=== PATIENT | female | born 1990 | race Caucasian/White ===

== ENCOUNTER 2016-11-12 19:22 | Emergency (ER) | payer OTHER ==
[~2016-11-12] VITALS: Ht 154.9 cm; Wt 63.6 kg
[~2016-11-12 19:22] MED LIST: ASCO100089 PO; DERSP TOP; IBUP-1152 PO; LANOHPA TOP; PNV1TABL57 PO; TUCPAD TOP
[2016-11-12 19:26] VITALS: BP 151/80; PULSE 98; RESP 20; O2SAT 98
--- NOTE | 2016-11-12 20:19 | ED.REPORT ---
HPI-General Illness Date of Service Nov 12, 2016 ED Provider: Jose Alejandro Rodriguez DO Patient is a 26 year old female with a history of bipolar disorder, PTSD and IV drug use who presents to the ED complaining of abdominal pain onset yesterday. Associated symptoms include pain that radiates into her back and bilateral flanks, nausea and vomiting. Patient reports that she is and last used heroin this morning. She states that she relapsed 2 months ago. Nursing Notes Stated Complaint: STOMACH/KIDNEY PAIN Chief Complaint: Female Abdominal Pain Nursing Notes Reviewed: Yes Allergies: Coded Allergies: No Known Allergies (Unverified Allergy, 11/07/12) Scheduled Ascorbic Acid-Expunged Drug, Do Not Renew! (Vitamin C-Expunged Drug, Do Not Renew!) 1,000 Mg Tab.chew 1,000 MG PO 1-2XD Buprenorphine SL (Buprenorphine SL) 8 Mg Tab.subl 8 MG SL BID PNV CMB#95/FERROUS FUMARATE/FA-Expunged Drug, (-Expunged Drug, Do Not Renew!) 1 Each Tablet 1 EACH PO 1-2XD Scheduled PRN ([Lanohpa]) 1 APPLIC TOP PRN PRN PRN ([Tucpad]) 1 EA TOP PRN PRN PRN Benzocaine (Dermoplast Marlow) 1 Marlow/Gm Aero 1 SPRAY TOP PRN PRN PRN IBUPROFEN-Expunged Drug, Do Not Renew! (IBUPROFEN-Expunged Drug, Do Not Renew!) 800 Mg Tablet 800 MG PO Q6 PRN PRN General Time Seen by MD: 20:19 Chief Complaint Abdominal pain Hx Obtained From: Patient Arrived By: Walk-in Sudden in Onset?: Yes Onset Occurred: 1 day ago Symptom Duration: Since onset Location: : Abdomen Quality: Painful, Pressure Radiation: : Back Severity: Current: Moderate Associated with: Reports: Nausea, Vomiting Recent Healthcare: No recent hospitalization, Recent doctor visit Similar Sx Previous: No Past Medical History Past Medical History Notes: patient is Rh positive and 10 weeks (11/12/16) Past Medical History anxiety depression bipolar disorder PTSD Smoking History Unknown if Ever Smoker Social History Drug Use: IV drugs Other Social History: Local resident Ambulatory Status Independent Review of Systems Full Review of Systems Constitutional: Denies: Chills, Fever Respiratory: Denies: Non-productive cough, Shortness of breath GI: Reports: Abdominal pain, Nausea, Vomiting, Denies: Constipation, Diarrhea Female: Reports: Flank pain, , Denies: Dysuria Musculoskeletal: Reports: Back pain Neurologic: Denies: Headache Complete sys rev & neg: except as marked. Physical Exam Vital Signs Vital Signs Date Time Temp Pulse Resp B/P Pulse Ox O2 Delivery O2 Flow Rate FiO2 11/12/16 19:26 37 98 20 151/80 98 Room Air Initial VS: Reviewed General/Constitutional: Awake, Alert Distress / Hydration: Positive: Distress mild Head / Eyes: Atraumatic, Normocephalic, PERRL, EOMI Respiratory / Chest: Atraumatic, Breath sounds NL, Breath sounds = bilat, No respiratory distress Cardiovascular: Heart rate NL, Regular rhythm, Heart sounds NL Abdomen: Atraumatic, Soft, BS normoactive Tenderness/Guarding/Rebound: Positive: Tender diffuse Skin: Atraumatic, Color NL, No rash, Warm, Dry Neurologic: Oriented X3, Speech NL, No motor deficits, No sensory deficits Psychiatric: Affect NL, Mood NL Interpretation & Diagnostics Interpretation & Diagnostics: Ultrasound per tech was normal and showed a 10 week Lab Results Interpretation Result Diagram: 11/12/16212411/12/162124 Test 11/12/16 20:20 11/12/16 21:25 Urine Color Straw (YELLOW) Urine Appearance Clear (CLEAR,HAZY) Urine pH 6.5 (5.0-8.0) Urine Specific [place] 1.015 (1.003-1.035) Urine Protein Negativemg/dL (NEG,TRACE) Urine Glucose (UA) Negativemg/dL (NEGATIVE) Urine Ketones Negativemg/dL (NEGATIVE) Urine Occult Blood Negative (NEGATIVE) Urine Nitrite Negative (NEGATIVE) Urine Bilirubin Negative (NEGATIVE) Urine Urobilinogen Normalmg/dL (NORMAL) Urine Leukocyte Esterase Moderate (NEGATIVE) Urine RBC 0-2/hpf (0-2) Urine WBC 6-10/hpf (0-5) Urine Epithelial Cells Few/hpf (NONE-MOD) Urine Crystals None seen (NONE SEEN) Urine Bacteria Few/hpf (NONE-FEW) Urine Hyaline Casts None/lpf (NONE) Urine Granular Casts None seen (NONE SEEN) Urine Waxy Casts None seen (NONE SEEN) Urine Red Blood Cell Casts None seen (NONE SEEN) Urine White Blood Cell Casts None seen (NONE SEEN) Urine Mucus None seen (None Seen) Urine Trichomonas None seen (NONE SEEN) Urine Yeast None (NONE SEEN) Urinalysis Comment None Urine Culture Reflexed Indicated White Blood Count 15.9th/mm3 (3.8-10.1) Red Blood Count 3.96mil/mm3 (3.90-5.20) Hemoglobin 12.4g/dL (12.0-15.6) Hematocrit 36.0% (35.0-46.0) Mean Corpuscular Volume 90.9fL (81-100) Mean Corpuscular Hemoglobin 31.3pg (27.0-35.0) Mean Corpuscular Hemoglobin Concent 34.4% (32.0-37.0) Red Cell Distribution Width 12.3% (12.3-15.4) Platelet Count 283bil/L (150-400) Neutrophils (%) (Auto) 82.8% (40-74) Lymphocytes (%) (Auto) 9.1% (14-46) Monocytes (%) (Auto) 6.6% (4-12) Eosinophils (%) (Auto) 0.9% (0-5) Basophils (%) (Auto) 0.1% (0-3) Sodium Level 137mEq/L (134-144) Potassium Level 3.9mEq/L (3.5-5.2) Chloride Level 95mEq/L (97-108) Carbon Dioxide Level 21mmol/L (18-29) Blood Urea Nitrogen 7mg/dL (6-20) Creatinine 0.52mg/dL (0.57-1.00) Estimat Glomerular Filtration Rate 203mL/min (>59) Glucose Level 96mg/dL (60-99) Calcium Level 10.5mg/dL (8.5-10.1) Magnesium Level 1.8mg/dL (1.6-2.6) Total Bilirubin 0.2mg/dL (0.0-1.2) Aspartate Amino Transf (AST/SGOT) 24U/L (0-50) Alanine Aminotransferase (ALT/SGPT) 18U/L (0-32) Alkaline Phosphatase 73U/L (25-150) Total Protein 8.4g/dL (6.4-8.4) Albumin 4.5g/dL (3.4-5.0) Lipase 17U/L (13-60) HCG Beta Subunit [id number]/mL Re-Eval/Medical Decision Med Decision/Clinical Course Patient is Rh positive and 10 weeks . Ultrasound was normal. Urinalysis showed few leukocytes and bacteria, will treat with Keflex. Her abdomen is soft with no evidence whatsoever of acute abdomen. Ectopic pregnancies been ruled out. No signs or symptoms consistent with appendicitis. I can deeply palpate all quadrants. No rebound guarding or rigidity. No tenderness. Urine has bacteria we will culture it. Plan to treat with Keflex. Dr. Neal was consulted for [facility] [facility]/Suboxone therapy. Please see his note. At discharge Wendy was pain free and ready to go. Dr. Nael: ER Suboxone consultation: I spent approximately 20 minutes with this patient discussing her options for management of her opioid use disorder and . She is familiar with Suboxone and understands its and bandages for this treatment. She will be started on buprenorphine 16 mg daily and she was given a primary access number for [facility] to follow up with me. Time of Eval: 23:09 Re-Evaluation/Progress Note: Discussed results and plan for discharge. Patient understands and agrees to plan. All questions were addressed. Counseled Regarding: Diagnosis, Lab results, Need for follow-up, When/why to return to ED Discharge & Departure Primary Impression: UTI (urinary tract infection) Urinary tract infection type: site unspecified Hematuria presence: without hematuria Qualified Code: N39.0 - Urinary tract infection, site not specified Additional Impressions: Abdominal pain Abdominal location: lower abdomen, unspecified Qualified Code: R10.30 - Lower abdominal pain, unspecified Opioid use disorder, moderate, dependence Disposition: Home Discharge Condition All VS Reviewed: Yes Condition: Stable Patient Instructions: Acute Abdominal Pain (ED), Buprenorphine (Into the mouth) , Urinary Tract Infection in Women (ED) Additional Instructions: Your labs were reassuring but your urine showed possible signs for infection. You appear to be 10 weeks and 6 days . The ultrasound was normal and reassuring. Take Keflex 3x daily for 5 days. Follow up with your primary care physician next week. Follow up with the attached referral to OBGYN next week. Return to the emergency department if you develop any new or concerning symptoms. Dr. Neal's discharge instructions: Do not use any more heroin. In approximately 20-24 hours when your withdrawal starts to become an issue you may take Subutex (buprenorphine). I have given you a prescription adequate for 16 mg daily for 5 days. Contact Clinton Joiner at [phone] Monday morning for an appointment this week to see me. If you have any concerns or questions you can call me between the hours of 9 PM and 6 AM for the next couple nights at [phone]. Referrals: [facility] Alex Attestation Portions of this note were transcribed by Kacie Diaz. I, Dr. Rodriguez personally performed the history, physical exam and medical decision-making; I reviewed and confirmed the accuracy of the information in the transcribed note. Signed by: Isai Collazo, 11/12/16 and 2054 copies to: [facility] ; [facility] Jose Alejandro Rodriguez DO Nov 12, 2016 20:19 Mikayla Diaz Nov 12, 2016 20:49 Luis Neal MD Nov 12, 2016 23:54
[2016-11-12] MEDS ORDERED: 0.9% Sodium Chloride 1,000 ML IV ONE (20:25)
[2016-11-12 21:23] LABS: APPEARANCE,URINE CLEAR (CLEAR,HAZY); COLOR,URINE STRAW (YELLOW); OCCULT BLOOD,URINE NEGATIVE (NEGATIVE); PH,URINE 6.5 (5.0-8.0); UROBILINOGEN,URINE NORMAL (NORMAL)
[2016-11-12] MEDS ORDERED: Ondansetron 2 mg/mL 2 mL Inj IVPUSH PRN (21:30)
[2016-11-12 21:36] LABS: BASOPHILS % (AUTO) 0.1 % (0-3); EOSINOPHILS % (AUTO) 0.9 % (0-5); MONOCYTES % (AUTO) 6.6 % (4-12); Mean Corpuscular Hemoglobin 31.3 pg (27.0-35.0); Mean Corpuscular Volume 90.9 fL (81-100); NEUTROPHILS % (AUTO) 82.8 % (40-74); Platelet Count 283 bil/L (150-400)
[2016-11-12 22:23] LABS: Magnesium 1.8 mg/dL (1.6-2.6)
[2016-11-12] MEDS ORDERED: BUPR8TAB2 SL (23:56)
--- NOTE | 2016-11-13 08:56 | DRSVH ---
+/- 7 days from 14 weeks to 15 weeks 6 days gestation, +/- 10 days from 16 weeks to 21 weeks 6 days g estation, +/- 2 weeks from 22 weeks to 27 weeks 6 days gestation, +/- 3 weeks for 28 weeks gestation or later. PROCEDURE: US OB<14 WKS+OB TRANSVAG INDICATIONS: , unsure of dates, pelvic pain OUTSIDE/PRIOR DATING DATA: Last menstrual period (LMP): Not available. LMP-based estimated date of delivery (ADRIAN): Not available. First dating scan (date and location): This study, 11/12/16. Estimated date of delivery (ADRIAN) from first dating scan: 06/04/17. TECHNIQUE: Real-time scanning was performed of the fetus and maternal pelvic organs, with image documentation. Endovaginal scanning was also performed to better visualize the fetus and maternal ovaries. COMPARISON: None. FINDINGS: Embryo: [employer] Ultrasound Procedure Report Early Gestation [employer] [place] Rump Length: 3.91 cm Gestational Age (CRL): 10 weeks, 6 days Summary Fetus Summary Heart Rate: 177 bpm Comments: A normal yolk sac is noted. No perigestational bleeds. Measurement variability in dating: +/- 4 weeks by LMP, +/- 7 days by mean sac diameter (use before 6 weeks gestation if crown-rump length not able to be measured), +/- 5 days by crown-rump length (up t o 8 weeks 6 days gestation), +/- 7 days by crown-rump length (from 9 weeks to 13 weeks 6 days gestati on). Maternal organs: Ovaries normal considering gestational status. Limited images through the kidneys demonstrate no hydronephrosis. IMPRESSION: 10 week 6 day gestational age with delivered a projected to be centered on 06/04/17, plus or -5 days. Followup anatomic survey at 22 weeks gestation is recommended. Dictated by: Johnnie Yeager M.D. on 11/13/2016 at 8:52 Approved by: Johnnie Yeager M.D. on 11/13/2016 at 8:54
== END 2016-11-12 23:46 | disposition home or self-care (01) ==
LOC: SED 19:22
DX: O23.41 Unspecified infection of urinary tract in pregnancy, first trimester (principal); O99.341 Other mental disorders complicating pregnancy, first trimester; F11.20 Opioid dependence, uncomplicated; R10.30 Lower abdominal pain, unspecified; Z3A.10 10 weeks gestation of pregnancy; F43.10 Post-traumatic stress disorder, unspecified
CPT/HCPCS: 36415; 76801; 76817; 80053; 81000; 81025; 83690; 83735; 84702; 85025; 87086; 87088; 96361; 96374; 99285; J2405; J7030